=== PATIENT | female | born 1970 | race African-American/Black ===

== ENCOUNTER 2025-07-21 08:00 | Emergency (ER) | payer SELFPAY ==
[2025-07-21 08:14] VITALS: BP 125/83; PULSE 71; RESP 18; TEMP 37.1; O2SAT 98
--- NOTE | 2025-07-21 08:20 | XR_ITS ---
Examination: CT abdomen and pelvis without contrast. Coronal 3-D reconstructions. Sagittal 2-D reconstructions. Date and time of exam:July 21, 2025, 0905 hours INDICATIONS: Bilateral flank pain with painful urination beginning 3 days ago CTDI: vol (mGy): 11.6 DLP: (mGycm): 705 Technique: Axial images of the abdomen have been obtained, 3 mm slice thickness Intravenous contrast material has not been administered. Low dose protocols were performed. One or more of the following dose reduction techniques were used; automated exposure control, adjustment of the mA and/or KV according to patient size, use of iterative reconstruction technique. Findings: No focal liver or splenic lesions Absent gallbladder No definite pancreatic mass 1 to 4 mm right renal calculi, no hydronephrosis or ureteral calculi 3 cm lower pole right renal cyst Aorta normal size 6 mm fat-containing umbilical hernia Normal appendix No bowel obstruction Absent uterus Contracted urinary bladder IMPRESSION: Nonobstructing right renal calculi, no hydronephrosis or ureteral calculi Normal appendix No bladder mass or bladder calculi
[2025-07-21] MEDS: KETOROLAC INJ 30 MG/ML VIAL IM (08:31)
[2025-07-21] MEDS: METOCLOPRAMIDE 5 MG TABLET 10 MG PO (08:32)
[2025-07-21 09:02] LABS: HCG Qualitative,Urine Negative
[2025-07-21 09:37] LABS: Basophils # (Auto) 0.0 Thou/mm3 (0.0-0.2); Basophils % (Auto) 0 % (0-2.5); Eosinophils # (Auto) 0.1 Thou/mm3 (0.0-0.5); Eosinophils % (Auto) 2 % (0-10); Hematocrit 37.8 % (36.0-46.0); Hemoglobin 12.1 g/dL (12.0-16.0); Immature Granulocytes Auto 0.01 Thou/mm3 (0.00-0.00); Lymphocytes # (Auto) 2.3 Thou/mm3 (1.0-4.8); Lymphocytes % (Auto) 38 % (10-50); Mean Corpuscular HGB Conc 32.0 g/dl (31.0-37.0); Mean Corpuscular Hemoglobin 30.1 pg (25.0-35.0); Mean Corpuscular Volume 94 fL (80-100); Monocytes # (Auto) 0.3 Thou/mm3 (0.0-0.8); Monocytes % (Auto) 6 % (0-12); Neutrophils # (Auto) 3.2 Thou/mm3 (1.8-7.7); Neutrophils % (Auto) 54 % (37-80); Nucleated Red Blood Cell # 0.00 Thou/mm3 (0.00-0.00); Nucleated Red Blood Cell % 0 /100 WBC (0); Platelet Count 214 Thou/mm3 (140-440); RDW Standard Deviation 51.4 fL (36.4-46.3); Red Blood Count 4.02 Miln/mm3 (4.00-5.20); White Blood Count 5.9 Thou/mm3 (3.6-11.0)
[2025-07-21 10:06] LABS: Alanine Aminotransferase 12 U/L (10-49); Albumin, Serum 4.5 gm/dL (3.5-5.0); Albumin/Globulin Ratio 1.6 (1.2-2.2); Alkaline Phosphatase 113 U/L (46-116); Amylase 113 U/L (30-118); Anion Gap 9 (7-16); Aspartate Amino Transferase 20 U/L (0-34); BUN/Creatinine Ratio 8 Ratio (12-20); Bilirubin,Total 0.3 mg/dL (0.3-1.2); Blood Urea Nitrogen 11 mg/dL (9-23); Calcium 9.7 mg/dL (8.3-10.6); Calcium (Corrected) 9.7 mg/dL (8.5-10.1); Carbon Dioxide 28.9 mMol/L (20.0-31.0); Chloride 105 mMol/L (98-107); Creatinine (Component) 1.3 mg/dL (0.6-1.3); Globulin 2.9 gm/dL (2.3-3.5); Glucose 114 mg/dL (74-106); Osmolality,Calculated 285 (275-295); Potassium 4.8 mMol/L (3.4-5.1); Sodium 143 mMol/L (136-145); Total Protein 7.4 gm/dL (5.7-8.2); eGFR 49 See Note
--- NOTE | 2025-07-21 11:01 | PD.EDADULT ---
ED General RME/HPI General Chief complaint: General Adult/Misc Complain Stated complaint: BILATERAL FLANK PAIN Time Seen by Provider: 07/21/25 08:08 Arrival date/time: 07/21/25 08:00 54-year-old female with medical history significant for , hysterectomy, pyelonephritis with sepsis presents for concerns for dysuria patient reports that she took a course of Bactrim reports symptoms persist patient reports lower back pain no fever no vomiting Limitations: no limitations Related Data Previous Rx's ?Medication ?Instructions ?Recorded ciprofloxacin HCl 500 mg tablet 500 mg PO BID 7 days #14 tabs 07/21/25 cyclobenzaprine 10 mg tablet 10 mg PO TID PRN muscle spasm 10 07/21/25 days #30 tab-caps ibuprofen 800 mg tablet 800 mg PO TID PRN pain #30 tabs 07/21/25 Allergies Allergy/AdvReac Type Severity Reaction Status Date / Time No Known Allergies Allergy Verified 07/21/25 08:03 Review of Systems Review of Systems Systems Reviewed: All systems reviewed, normal except as documented Constitutional Constitutional: Reports system reviewed and no additional complaints, except as documented, Denies fever(s) and Denies headache(s) Eyes Eyes: Reports system reviewed and no additional complaints, except as documented and Denies blurry vision ENT Ears, Nose, Mouth, and Throat: Reports system reviewed and no additional complaints, except as documented, Denies headache(s), Denies nasal congestion and Denies nasal discharge Cardiovascular Cardiovascular: Reports system reviewed and no additional complaints, except as documented, Denies chest pain and Denies dyspnea Respiratory Respiratory: Reports system reviewed and no additional complaints, except as documented, Denies chest congestion, Denies cough and Denies dyspnea Gastrointestinal Gastrointestinal: Reports system reviewed and no additional complaints, except as documented and Denies abdominal pain Genitourinary Genitourinary: Reports system reviewed and no additional complaints, except as documented and Reports dysuria Integumentary/Breasts Skin/Breast: Reports system reviewed and no additional complaints, except as documented and Denies rash Neurologic Neurologic: Reports system reviewed and no additional complaints, except as documented, Reports as per HPI and Denies headache(s) Past Medical History Social History SMOKING STATUS: Never smoker ED Exam General Limitations: Present no limitations General appearance: Present alert and in no apparent distress Head Head exam: Present atraumatic, normocephalic and normal inspection Eye Eye exam: Present normal appearance, PERRL and EOMI; Absent conjunctival injection ENT ENT exam: Present normal exam, normal oropharynx and mucous membranes moist Neck Neck exam: Present normal inspection, full ROM and trachea midline Chest Chest inspection: Present normal inspection and symmetric chest wall rise Respiratory Respiratory exam: Present normal lung sounds bilaterally; Absent respiratory distress Cardiovascular Cardiovascular exam: Present regular rate, normal rhythm and normal heart sounds Abdominal Exam Abdominal exam: Present soft and normal bowel sounds; Absent distention, tenderness, guarding, rebound, rigidity, De La Paz's sign, Rovsing's sign or tenderness at McBurney's Point Abdominal tenderness: Absent RUQ or RLQ Extremities Exam Extremities exam: Present normal inspection and full ROM Back Exam Back exam: Present normal inspection, full ROM, tenderness, muscle spasm and paraspinal tenderness; Absent CVA tenderness (R) or CVA tenderness (L) Neurological Exam Neurological exam: Present alert, oriented X3 and CN II-XII intact Psychiatric Psychiatric exam: Present normal affect and normal mood Skin Skin exam: Present warm, dry, intact and normal color Course Quality Measures none Orders Category Date Time Status CT abdomen pelvis wo con Stat Exams 07/21/25 08:20 Completed Amylase Stat Lab 07/21/25 09:23 Completed CBC Stat Lab 07/21/25 09:23 Completed Comprehensive Metabolic Panel Stat Lab 07/21/25 09:23 Completed HCG Qualitative,Urine Stat Lab 07/21/25 08:39 Completed UA, C/S IF [Urinalysis, C/S if Indicated] Stat Lab 07/21/25 08:39 Completed Ketorolac Inj [Toradol Inj] Med 07/21/25 08:20 Discontinued 30 mg IM X1 ONE Lidocaine 1% 20 ml [Xylocaine 1% 20 ML] Med 07/21/25 11:02 Discontinued 2.1 ml INFL X1 ONE Metoclopramide [Reglan] Med 07/21/25 08:20 Discontinued 10 mg PO X1 ONE cefTRIAXone [Rocephin] Med 07/21/25 11:02 Discontinued 1,000 mg IM X1 ONE Vital Signs Vital signs: Vital Signs Temperature 98.7 F 07/21/25 08:14 Pulse Rate 71 07/21/25 08:14 Respiratory Rate 18 07/21/25 08:14 Blood Pressure 125/83 07/21/25 08:14 Pulse Oximetry (%) 98 07/21/25 08:14 Oxygen Delivery Method Room Air 07/21/25 08:14 O2 saturation 98% room air within normal limits Discharge Plan Plan Patient Disposition: HOME (Self Care) Discharge Disposition comment: Stable Prescriptions/Referrals Prescriptions/Med Rec: New cyclobenzaprine 10 mg tablet 10 mg PO TID PRN (Reason: muscle spasm) 10 Days Qty: 30 0RF ibuprofen 800 mg tablet 800 mg PO TID PRN (Reason: pain) Qty: 30 0RF ciprofloxacin HCl 500 mg tablet 500 mg PO BID 7 Days Qty: 14 0RF Referrals: Osvaldo Roberts MD [Primary Care Provider, Family Practice] - 07/23/25 Problem List Clinical Impression: UTI (urinary tract infection), Back pain Patient/Caregiver Discharge Instructions Education Materials: Back Safety: Sitting Additional Instructions: Please follow up with your primary care doctor in the next 24-48hrs for any worsening symptoms return here immediately Print Language: Yemeni Stand Alone Forms: Kiersten Award Info., Work/School Release, Patient Portal Info Letter PA/RESIDENT ASSISTANT Supervising Physician PA/TIFFANIE Supervising Physician: dr louis [facility] Narrative [facility] hospital course: 54-year-old female with medical history significant for , hysterectomy, pyelonephritis with sepsis presents for concerns for dysuria patient reports that she took a course of Bactrim reports symptoms persist patient reports lower back pain no fever no vomiting On exam patient well-appearing patient does not appear toxic no acute distress Lab work and imaging obtained no acute emergent findings noted Patient discharged home to address above primary care doctor in this 24 to 48 hours for worsening symptoms return immediately Clinical Information Provided by patient Medical Records Reviewed None Meds/Rx Considered, not Ordered Describe details: Ordered Labs/Rad/Tests considered, not Ordered Describe details: Ordered Chronic Illness/Social Conditions which may negatively complicate care or outcome(s)-explain: None or not applicable EKG EKG not done Lab Interpretation Lab(s) interpretation(s): Reviewed by me Imaging Imaging interpretation: see narrative above Provider imaging interpretation(s): Ordered Radiology reports / interpretation(s): Reviewed by me Medication Administration(s) Medication Administration History Discontinued Medications Ceftriaxone Sodium (Ceftriaxone Sod Inj 1,000 Mg Vial) 1,000 mg IM X1 ONE Stop: 07/21/25 11:03 Last Admin: 07/21/25 11:08 Dose: 1,000 mg Documented By: OA Ketorolac Tromethamine (Ketorolac Inj 30 Mg/Ml Vial) 30 mg IM X1 ONE Stop: 07/21/25 08:21 Last Admin: 07/21/25 08:31 Dose: 30 mg Documented By: VL Lidocaine HCl (Lidocaine Hcl 1% 20 Ml Vial) 2.1 ml INFL X1 ONE Stop: 07/21/25 11:03 Last Admin: 07/21/25 11:08 Dose: 2.1 ml Documented By: DAVID Metoclopramide HCl (Metoclopramide 5 Mg Tablet) 10 mg PO X1 ONE Stop: 07/21/25 08:21 Last Admin: 07/21/25 08:32 Dose: 10 mg Documented By: FAVIO Ordered Diagnosis Differential diagnosis: UTI, cystitis, pyelonephritis Most likely dx, and/or detailed dx discussion: UTI Dispositon Disposition: Discharge Home
[2025-07-21] MEDS: cefTRIAXone SOD INJ 1,000 MG VIAL 1000 MG IM (11:08)
[2025-07-21] MEDS: LIDOCAINE HCL 1% 20 ML VIAL 2.1 ML INFL (11:08)
[2025-07-21 12:25] LABS: Collection Type, Urine Clean Catch
[2025-07-21 12:30] LABS: Bilirubin,Urine Negative (Negative); Blood,Urine 2+ (Negative); Clarity,Urine Hazy (Clear/Hazy); Color,Urine Yellow (Lt Yel-Yel); Culture Indicated,Urine Contaminated; Glucose, Urine Negative (Negative); Hyaline Casts,Urine < 1 /hpf (0-1); Ketones,Urine Negative (Negative); Leukocyte Esterase,Urine Positive (Negative); Nitrite,Urine Negative (Negative); PH,Urine 6.0 (5.0-7.0); Protein,Urine Trace (Neg - Trace); RBC,Urine 18 /hpf (0-3); Specific Gravity,Urine 1.021 (1.001-1.035); Squamous Epithelial Cell,Urine 14 /hpf (0-5); Urobilinogen,Urine 2.0 mg/dL (0.0-1.0); WBC,Urine 129 /hpf (0-5)
== END 2025-07-21 11:13 | disposition home or self-care (01) ==
PROVIDERS: Nurse Practitioner Primary Care; Emergency Provider Emergency Medicine; PCP Family Medicine
DX: N39.0 Urinary tract infection, site not specified (principal); M54.50 Low back pain, unspecified; R10.9 Unspecified abdominal pain
CPT/HCPCS: 36415; 74176; 80053; 81001; 81025; 82150; 85025; 96372; 99283; J0696; J1885; J3490; A9270

== ENCOUNTER → 2025-08-13 | Outpatient (CLI) | payer BC, SELFPAY ==
--- NOTE | 2025-08-13 09:26 | XR_ITS ---
Examination: Foot, right, 3 views Technique: AP, oblique, lateral views foot, 3 views Date and time of exam: August 13, 2025, 0939 hours INDICATIONS: Right foot pain beginning 3 weeks ago. FINDINGS: On the oblique view suspicious for acute fracture base fourth metatarsal No dislocation IMPRESSION: Suspicious for nondisplaced acute fracture base fourth metatarsal
== END | disposition home or self-care (01) ==
PROVIDERS: Referring Provider Podiatrist; Visit Provider Podiatrist
DX: S99.921A Unspecified injury of right foot, initial encounter (principal); X58.XXXA Exposure to other specified factors, initial encounter
CPT/HCPCS: 73630